=== PATIENT | male | born 1970 | race Caucasian/White ===

== ENCOUNTER 2017-02-13 11:41 | Emergency (ER) | payer SELFPAY ==
[~2017-02-13] VITALS: Ht 154.9 cm; Wt 65.8 kg
[~2017-02-13 11:41] MED LIST: CIPRO500 MG PO; CYCLOBENZAPRINE10 MG PO; FLOMAX0.4 MG PO; FLUONAZOLE150 MG PO; IBU800 MG PO; IBUPROFEN 30 M800 MG PO; MOTRIN800 MG PO; NKHM; PERCOCET 325 MG1 TA2 PO; PHENERGAN25 M1 PO; PYRIDIUM200 MG PO
[2017-02-13 11:49] VITALS: BP 138/80
[2017-02-13] MEDS ORDERED: NAPROSYN500 MG PO (11:55)
[2017-02-13] MEDS ORDERED: LIDOCAINE HCL100 M1 MM (11:55)
[2017-02-13] MEDS ORDERED: PENICILLIN VK500 MG PO (11:55)
[2017-02-13] MEDS ORDERED: Peridex 473 ML473 ML PO (11:55)
== END 2017-02-13 12:06 | disposition home or self-care (01) ==
LOC: ED 11:41
DX: K02.9 Dental caries, unspecified (principal); R03.0 Elevated blood-pressure reading, without diagnosis of hypertension; F17.200 Nicotine dependence, unspecified, uncomplicated

== ENCOUNTER 2017-11-16 07:56 | Emergency (ER) | payer SELFPAY ==
[~2017-11-16] VITALS: Wt 68.0 kg
[~2017-11-16 07:56] MED LIST changes: +LIDOCAINE HCL100 M1 MM; +NAPROSYN500 MG PO; +PENICILLIN VK500 MG PO; +Peridex 473 ML473 ML PO
[2017-11-16 08:00] VITALS: BP 143/86
[2017-11-16] MEDS ORDERED: NORCO 10-325 T1 EACH PO (11:20)
== END 2017-11-16 12:54 | disposition home or self-care (01) ==
LOC: ED 07:56
DX: S92.901A Unspecified fracture of right foot, initial encounter for closed fracture (principal); F17.200 Nicotine dependence, unspecified, uncomplicated; W18.39XA Other fall on same level, initial encounter; Y93.89 Activity, other specified; Y92.89 Other specified places as the place of occurrence of the external cause; Y99.8 Other external cause status

== ENCOUNTER 2023-04-23 16:09 | Emergency (ER) | payer MEDICAID ==
[~2023-04-23] VITALS: Ht 180.3 cm; Wt 77.1 kg
[~2023-04-23 16:09] MED LIST changes: +NORCO 10-325 T1 EACH PO
[2023-04-23 17:08] LABS: BASO % 0.3 % (0.0-1.0); EOS % 0.2 % (1.0-4.0); HEMATOCRIT 48.2 % (42.0-52.0); LYMPH # 1.5 10*3/uL (1.3-4.4); MEAN CELL VOLUME 94.7 fl (80.0-94.0); MEAN CORPUSCULAR HGB 31.8 pg (27.0-31.0); MEAN CORPUSCULAR HGB CONC 33.6 g/dl (33.0-37.0); MEAN PLATELET VOLUME 8.8 fl (9.6-12.3); MONO # 0.7 10*3/uL (0.1-1.0); MONO % 6.4 % (3.0-9.0); NEUT % 77.9 % (47.0-73.0); PLATELET COUNT AUTOMATED 252 10*3/uL (130-400); RED BLOOD COUNT 5.09 10*6/uL (4.50-5.90); WHITE BLOOD COUNT 10.3 10*3/uL (4.8-10.8)
[2023-04-23 17:19] LABS: ACT PARTIAL THROMBO TIME 24.6 SECONDS (20.0-32.1); INTERNATIONAL NORM RATIO 0.9 (2.0-3.5)
[2023-04-23 17:33] LABS: ALKALINE PHOSPHATASE 66 U/L (46-116); BUN 10 mg/dl (9-23); CHLORIDE 103 mmol/L (98-107); CPK 97 U/L (34-171); LIPASE 47 U/L (12-53); POTASSIUM 3.9 mmol/L (3.4-5.1); SGPT/ALT 24 U/L (10-49); TOTAL PROTEIN 7.7 gm/dL (6.0-8.0)
[2023-04-23 17:40] LABS: ETHYL ALCOHOL < 3.0 mg/dl (<3)
[2023-04-23 19:48] LABS: BILIRUBIN Negative (Negative); BLOOD Negative (Negative); CLARITY Clear (Clear); COLOR Yellow (Yellow); GLUCOSE Negative (Negative); KETONE 1+ (Negative); LEUKO ESTERASE Negative (Negative); NITRITE Negative (Negative); SPECIFIC GRAVITY 1.015 (1.001-1.030)
[2023-04-23 20:09] LABS: BACTERIA TRACE; EPITHELIAL CELLS 0-2; RBC 0-2 rbc/hpf (0-2); WBC 0-2 wbc/hpf (0-5)
[2023-04-23 20:12] LABS: URINE AMPHETAMINES Negative (1000ng/ml); URINE BARBITURATES Negative (200ng/ml); URINE BENZODIAZEPINES Positive (200ng/ml); URINE CANNABINOIDS (THC) Negative (50ng/ml); URINE COCAINE Negative (300ng/ml); URINE METHADONE Negative (300ng/ml); URINE OPIATES Negative (300ng/ml); URINE PHENCYCLIDINE Negative (25ng/ml)
[2023-04-24 20:25] VITALS: BP 122/74
== END 2023-04-25 11:24 ==
LOC: ED 16:09
PROVIDERS: Emergency Medicine
DX: F43.21 Adjustment disorder with depressed mood (principal); F41.9 Anxiety disorder, unspecified; K21.9 Gastro-esophageal reflux disease without esophagitis; Z87.442 Personal history of urinary calculi; Z88.8 Allergy status to other drugs, medicaments and biological substances; Z98.890 Other specified postprocedural states; Z20.822 Contact with and (suspected) exposure to COVID-19

== ENCOUNTER 2023-09-26 18:42 | Emergency (ER) | payer MEDICAID ==
[~2023-09-26] VITALS: Ht 180.3 cm; Wt 72.6 kg
[2023-09-26 19:12] LABS: BASO % 0.3 % (0.0-1.0); EOS # 0.1 10*3/uL (0.0-0.4); EOS % 0.8 % (1.0-4.0); HEMATOCRIT 44.4 % (42.0-52.0); LYMPH # 2.4 10*3/uL (1.3-4.4); LYMPH % 21.4 % (27.0-41.0); MEAN CELL VOLUME 89.7 fl (80.0-94.0); MEAN CORPUSCULAR HGB 30.5 pg (27.0-31.0); MEAN PLATELET VOLUME 8.5 fl (9.6-12.3); MONO # 0.5 10*3/uL (0.1-1.0); MONO % 4.6 % (3.0-9.0); NEUT # 8.2 10*3/uL (2.3-7.9); NEUT % 72.6 % (47.0-73.0); PLATELET COUNT AUTOMATED 333 10*3/uL (130-400); RED BLOOD COUNT 4.95 10*6/uL (4.50-5.90); RED CELL DISTRI WIDTH 12.7 % (0-14.5); WHITE BLOOD COUNT 11.3 10*3/uL (4.8-10.8)
[2023-09-26 19:34] LABS: ALKALINE PHOSPHATASE 66 U/L (46-116); BUN 11 mg/dl (9-23); CHLORIDE 110 mmol/L (98-107); LIPASE 39 U/L (12-53); POTASSIUM 3.4 mmol/L (3.4-5.1); SGPT/ALT 15 U/L (5-49)
[2023-09-26 20:06] LABS: ACT PARTIAL THROMBO TIME 25.9 SECONDS (20.0-32.1)
[2023-09-26 22:54] VITALS: BP 82/42
== END 2023-09-26 23:28 | disposition short-term general hospital (02) ==
LOC: ED 18:42
PROVIDERS: Internal Medicine
DX: I21.3 ST elevation (STEMI) myocardial infarction of unspecified site (principal); R68.84 Jaw pain; K21.9 Gastro-esophageal reflux disease without esophagitis; Z87.442 Personal history of urinary calculi; Z88.8 Allergy status to other drugs, medicaments and biological substances; Z98.890 Other specified postprocedural states; Z87.891 Personal history of nicotine dependence

== ENCOUNTER → 2023-11-17 | Outpatient (CLI) | payer MEDICAID ==
[2023-11-17 10:23] LABS: HEMATOCRIT 44.9 % (42.0-52.0); MEAN CELL VOLUME 93.2 fl (80.0-94.0); MEAN CORPUSCULAR HGB 29.9 pg (27.0-31.0); MEAN CORPUSCULAR HGB CONC 32.1 g/dl (33.0-37.0); MEAN PLATELET VOLUME 9.3 fl (9.6-12.3); RED BLOOD COUNT 4.82 10*6/uL (4.50-5.90); RED CELL DISTRI WIDTH 12.9 % (0-14.5); WHITE BLOOD COUNT 8.2 10*3/uL (4.8-10.8)
[2023-11-17 10:45] LABS: ALKALINE PHOSPHATASE 62 U/L (46-116); BUN 13 mg/dl (9-23); CHLORIDE 113 mmol/L (98-107); CHOLESTEROL 123 mg/dL (<200); CPK 43 U/L (34-171); LDL CHOLESTEROL 69 mg/dL (9-159); SGPT/ALT 44 U/L (5-49); TOTAL PROTEIN 6.7 gm/dL (6.0-8.0); TRIGLYCERIDES 106 mg/dl (<150)
[2023-11-17 10:47] LABS: VITAMIN D, 25-HYDROXY 26.4 ng/mL (30-100)
== END | disposition home or self-care (01) ==
LOC: LAB 09:51
PROVIDERS: ATTEND Family Medicine
DX: I25.10 Atherosclerotic heart disease of native coronary artery without angina pectoris (principal); E78.00 Pure hypercholesterolemia, unspecified; K21.9 Gastro-esophageal reflux disease without esophagitis; E10.9 Type 1 diabetes mellitus without complications; E55.9 Vitamin D deficiency, unspecified

== ENCOUNTER → 2023-12-21 | Outpatient (CLI) | payer MEDICAID ==
[2023-12-21 13:59] LABS: BUN 14 mg/dl (9-23); CHLORIDE 111 mmol/L (98-107)
== END | disposition home or self-care (01) ==
LOC: LAB 12:56
PROVIDERS: ATTEND Family Medicine
DX: N18.30 Chronic kidney disease, stage 3 unspecified (principal)

== ENCOUNTER 2024-12-13 13:13 | Emergency (ER) | payer MEDICAID ==
[~2024-12-13] VITALS: Wt 68.0 kg
[2024-12-13 13:25] VITALS: BP 139/74
[2024-12-13 13:50] LABS: BASO % 0.3 % (0.0-1.0); EOS # 0.1 10*3/uL (0.0-0.4); EOS % 0.9 % (1.0-4.0); HEMATOCRIT 45.8 % (42.0-52.0); MEAN CELL VOLUME 93.7 fl (80.0-94.0); MEAN CORPUSCULAR HGB 30.5 pg (27.0-31.0); MEAN CORPUSCULAR HGB CONC 32.5 g/dl (33.0-37.0); MEAN PLATELET VOLUME 9.2 fl (9.6-12.3); MONO # 0.9 10*3/uL (0.1-1.0); MONO % 8.4 % (3.0-9.0); NEUT # 7.6 10*3/uL (2.3-7.9); NEUT % 72.8 % (47.0-73.0); PLATELET COUNT AUTOMATED 250 10*3/uL (130-400); RED BLOOD COUNT 4.89 10*6/uL (4.50-5.90); RED CELL DISTRI WIDTH 12.5 % (0-14.5); WHITE BLOOD COUNT 10.4 10*3/uL (4.8-10.8)
[2024-12-13] MEDS ORDERED: CLOPIDOGREL75 MG PO (13:52)
[2024-12-13] MEDS ORDERED: ASPIRIN ADULT L81 M2 PO (13:52)
[2024-12-13] MEDS ORDERED: ROSUVASTATIN CA20 MG PO (13:53)
[2024-12-13] MEDS ORDERED: Lopressor25 MG PO (13:53)
[2024-12-13] MEDS ORDERED: PANTOPRAZOLE SO40 MG PO (13:53)
[2024-12-13 14:02] LABS: ACT PARTIAL THROMBO TIME 24.4 SECONDS (20.0-32.1)
[2024-12-13 14:09] LABS: BUN 17 mg/dl (9-23); CHLORIDE 107 mmol/L (98-107)
[2024-12-13] MEDS ORDERED: MG-AL HYDROXIDE/SIMETICONE 30 ML UDC PO STA (15:09)
[2024-12-13] MEDS ORDERED: Lidocaine Hydrochloride 15 ML UDC PO STA (15:09)
[2024-12-13] MEDS ORDERED: Dicyclomine Hydrochloride 20 MG/10 ML OSYR PO STA (15:09)
[2024-12-13] MEDS ORDERED: PEPCID20 MG PO (16:37)
== END 2024-12-13 16:43 | disposition home or self-care (01) ==
LOC: ED 13:13
PROVIDERS: Internal Medicine
DX: K21.9 Gastro-esophageal reflux disease without esophagitis (principal); R07.89 Other chest pain; I25.2 Old myocardial infarction; Z87.891 Personal history of nicotine dependence; Z87.442 Personal history of urinary calculi; Z88.8 Allergy status to other drugs, medicaments and biological substances; Z98.890 Other specified postprocedural states

== ENCOUNTER 2025-06-01 09:10 | Inpatient (IN) | payer MEDICAID ==
[~2025-06-01] VITALS: Ht 180.3 cm; Wt 73.0 kg
[~2025-06-01 09:10] MED LIST changes: +ASPIRIN ADULT L81 M2 PO; +CLOPIDOGREL75 MG PO; +Lopressor25 MG PO; +PANTOPRAZOLE SO40 MG PO; +PEPCID20 MG PO; +ROSUVASTATIN CA20 MG PO
[2025-06-01 09:16] VITALS: BP 128/57
[2025-06-01 09:53] LABS: MEAN CELL VOLUME 98.5 fl (80.0-94.0); MEAN CORPUSCULAR HGB 31.6 pg (27.0-31.0); MEAN PLATELET VOLUME 9.0 fl (9.6-12.3); NUCLEATED RED BLOOD CELL 0.0 % (0.0-0.0); NUCLEATED RED BLOOD CELL 0.0 10*3/uL (0.0-0.0); PLATELET COUNT AUTOMATED 207 10*3/uL (130-400); RED CELL DISTRI WIDTH 12.9 % (0-14.5)
[2025-06-01 09:56] LABS: MANUAL DIFF REFLEX YES
[2025-06-01 10:03] LABS: ACT PARTIAL THROMBO TIME 20.5 SECONDS (20.0-32.1)
[2025-06-01 10:09] LABS: BILIRUBIN Negative (Negative); BLOOD Trace-Intact (Negative); CLARITY Cloudy (Clear); COLOR Yellow (Yellow); KETONE Trace (Negative); LEUKO ESTERASE Negative (Negative); NITRITE Negative (Negative); PH 6.0 (4.5-8.0); SPECIFIC GRAVITY 1.020 (1.001-1.030); UROBILINOGEN 1.0 E.U./dl (0.0-1.0)
[2025-06-01 10:15] LABS: PLATELET SUFFICIENCY NORMAL (NORMAL)
[2025-06-01 10:16] LABS: URINE AMPHETAMINES Negative (1000ng/ml); URINE BARBITURATES Negative (200ng/ml); URINE BENZODIAZEPINES Negative (200ng/ml); URINE CANNABINOIDS (THC) Negative (50ng/ml); URINE COCAINE Positive (300ng/ml); URINE METHADONE Negative (300ng/ml); URINE OPIATES Positive (300ng/ml); URINE PHENCYCLIDINE Negative (25ng/ml)
[2025-06-01 10:19] LABS: BUN 21.0 mg/dl (9-23); SGPT/ALT 209.0 U/L (5-49)
[2025-06-01] MEDS ORDERED: SODIUM CHLORIDE 0.9% 1,000 ML IV SCH ×2 (10:25→12:50)
[2025-06-01 10:27] LABS: BACTERIA 1+
[2025-06-01 10:52] VITALS: BP 88/46
[2025-06-01 11:05] VITALS: BP 105/51
[2025-06-01 12:20] VITALS: BP 105/80
[2025-06-01 14:55] VITALS: BP 102/68
[2025-06-02 04:27] LABS: BASO # 0.0 10*3/uL (0.0-0.1); BASO % 0.1 % (0.0-1.0); EOS # 0.0 10*3/uL (0.0-0.4); EOS % 0.2 % (1.0-4.0); MEAN CELL VOLUME 97.4 fl (80.0-94.0); MEAN CORPUSCULAR HGB 31.9 pg (27.0-31.0); MEAN PLATELET VOLUME 9.6 fl (9.6-12.3); MONO # 1.3 10*3/uL (0.1-1.0); MONO % 9.2 % (3.0-9.0); NEUT # 12.0 10*3/uL (2.3-7.9); NEUT % 82.7 % (47.0-73.0); NUCLEATED RED BLOOD CELL 0.0 % (0.0-0.0); NUCLEATED RED BLOOD CELL 0.0 10*3/uL (0.0-0.0); PLATELET COUNT AUTOMATED 161 10*3/uL (130-400); RED CELL DISTRI WIDTH 13.3 % (0-14.5)
[2025-06-02 04:50] LABS: BUN 14 mg/dl (9-23)
[2025-06-02 08:00] VITALS: BP 123/69
[2025-06-02] MEDS ORDERED: FAMOTIDINE 20 MG TAB PO SCH (10:00)
[2025-06-02] MEDS ORDERED: Clopidogrel Hydrogen Sulfate 75 MG TAB PO SCH (10:00)
[2025-06-02 12:00] VITALS: BP 114/70
[2025-06-02 16:00] VITALS: BP 166/91
[2025-06-02] MEDS ORDERED: SODIUM CHLORIDE 0.9% 1,000 ML IV SCH (16:25)
[2025-06-02] MEDS ORDERED: Phosphorus/Potassium 1.45 GM PACKET PO SCH (17:00)
[2025-06-02 20:00] VITALS: BP 152/70
[2025-06-03] VITALS: BP 142/87
[2025-06-03 05:27] LABS: BUN 14 mg/dl (9-23)
[2025-06-03 06:05] LABS: BASO # 0.0 10*3/uL (0.0-0.1); BASO % 0.3 % (0.0-1.0); EOS # 0.2 10*3/uL (0.0-0.4); EOS % 1.3 % (1.0-4.0); MEAN CELL VOLUME 95.5 fl (80.0-94.0); MEAN CORPUSCULAR HGB 31.6 pg (27.0-31.0); MEAN PLATELET VOLUME 10.1 fl (9.6-12.3); MONO # 1.2 10*3/uL (0.1-1.0); MONO % 10.5 % (3.0-9.0); NEUT # 8.3 10*3/uL (2.3-7.9); NEUT % 74.2 % (47.0-73.0); NUCLEATED RED BLOOD CELL 0.0 % (0.0-0.0); NUCLEATED RED BLOOD CELL 0.0 10*3/uL (0.0-0.0); PLATELET COUNT AUTOMATED 160 10*3/uL (130-400); RED CELL DISTRI WIDTH 12.9 % (0-14.5)
[2025-06-03 08:00] VITALS: BP 144/85; BP 151/63
[2025-06-03] MEDS ORDERED: Ondansetron Hydrochloride 4 MG/2 ML VIAL IV PRN (08:20)
[2025-06-03 12:00] VITALS: BP 146/81
== END 2025-06-03 16:30 | disposition home or self-care (01) | DRG 812 ==
LOC: ED 09:10 → EDHOLD 12:16 → ICCU 14:39 → 4E 06-03 08:07
PROVIDERS: Internal Medicine; ADMIT Internal Medicine; ATTEND Internal Medicine
DX: T40.2X1A Poisoning by other opioids, accidental (unintentional), initial encounter (principal); A41.9 Sepsis, unspecified organism; N17.0 Acute kidney failure with tubular necrosis; R65.20 Severe sepsis without septic shock; N39.0 Urinary tract infection, site not specified; R74.01 Elevation of levels of liver transaminase levels; K21.9 Gastro-esophageal reflux disease without esophagitis; G89.29 Other chronic pain; F19.10 Other psychoactive substance abuse, uncomplicated; N20.0 Calculus of kidney; I95.9 Hypotension, unspecified; F33.9 Major depressive disorder, recurrent, unspecified; F41.1 Generalized anxiety disorder; Y92.89 Other specified places as the place of occurrence of the external cause